=== PATIENT | male | born 1995 | race Caucasian/White ===

== ENCOUNTER 2016-11-06 03:12 | Emergency (ER) | payer BC ==
[~2016-11-06] VITALS: Ht 170.2 cm; Wt 89.1 kg
[~2016-11-06 03:12] MED LIST: NOHOMEMEDS
[2016-11-06] MEDS ORDERED: KEFLEX250 MG PO (04:39)
[2016-11-06 05:03] VITALS: BP 134/88
== END 2016-11-06 05:04 | disposition home or self-care (01) ==
LOC: EME 03:12
PROC: 0CQ1XZZ Repair Lower Lip, External Approach (ICD-10-PCS; principal; 2016-11-06)
DX: S01.511A Laceration without foreign body of lip, initial encounter (principal); S01.512A Laceration without foreign body of oral cavity, initial encounter; W10.9XXA Fall (on) (from) unspecified stairs and steps, initial encounter; F17.200 Nicotine dependence, unspecified, uncomplicated
CPT/HCPCS: 99281; 99284